=== PATIENT | female | born 2000 | race African-American/Black ===

== ENCOUNTER 2019-05-26 23:51 | Emergency (ER) | payer BC, MEDICAID ==
[2019-05-27 00:45] LABS: #Basophils 0.1 thou/uL (0.0-0.2); #Eosinphils 0.1 thou/uL (0.0-0.7); #Lymphocytes 2.9 thou/uL (1.20-3.40); #Monocytes 0.7 thou/uL (0.11-0.59); #Neutrophils 3.5 thou/uL (1.40-6.50); %Basophils 1.2 % (0.0-1.0); %Lymphocytes 39.8 % (28.0-48.0); Hemoglobin 11.9 g/dL (12.0-16.0); Mean Corpuscular HGB CONC 33.7 g/dL (32.0-36.0); Mean Corpuscular Hemoglobin 31.2 pg (25.0-35.0); Mean Corpuscular Volume 92.6 fL (78.0-98.0); Mean Platelet Volume 6.5 fL (7.4-10.4); Platelet Count 350 thou/uL (130-400); RBC Distribution Width 11.4 % (11.5-14.5); White Blood Cell (WBC) Count 7.2 thou/uL (4.8-10.8)
[2019-05-27 00:56] LABS: Pregnancy Test - Urine (BHCG) POSITIVE (Negative); Pregu Control Background? CLEAR/WHITE (CLR/WHITE); Pregu Control Bar Appear? YES (CONTROL BAR)
[2019-05-27 00:57] LABS: Specific Gravity 1.006 (1.002-1.036)
[2019-05-27 01:01] LABS: Bacteria/HPF 4+ HPF (None Seen); Bilirubin Negative (Negative); Blood, Urine 1+ (Negative); Clarity Turbid (Clear); Glucose, Urine (Dipstick) Normal (Negative); Leukocyte 500 Leu/uL (Negative); Nitrite Negative (Negative); Protein, Urine (Dipstick) Negative (Neg-Trace); Urobilinogen Normal mg/dL (Less than 2)
[2019-05-27 01:19] LABS: ALT (SGPT) 10 U/L (8-55); AST (SGOT) 15 U/L (5-34); Albumin 4.4 g/dL (3.5-5.0); Alkaline Phosphatase 52 U/L (40-100); Anion Gap 9 mmol/L (10-20); BUN (Urea Nitrogen) 6 mg/dL (7.0-18.7); Bilirubin, Total 0.5 mg/dL (0.2-1.2); Calc. Creatinine Clearance 0 mL/min (70-130); Calcium 9.2 mg/dL (7.8-10.44); Carbon Dioxide 28 mmol/L (22-29); Chloride 103 mmol/L (98-107); Estimated GFR-MDRD Greater than 90; Glucose 87 mg/dL (70-105); Potassium 3.9 mmol/L (3.5-5.1); Protein, Total 7.4 g/dL (6.0-8.3); Sodium 136 mmol/L (136-145)
--- NOTE | 2019-05-27 09:11 | ULT ---
PRELIMINARY REPORT/[facility]/EMERGENCY AFTER HOURS PROCEDURE: PROCEDURE INFORMATION: Exam: US First Trimester, Transabdominal and US Duplex Artery or Vein, Ovaries, Limited Exam date and time: 05/27/2019 4:23 AM Age: 18 years old Clinical history: complicated by abdominal or pelvic pain; Lower; First trimester; Gestatio nal age or lmp: Lmp= 04/18/19; ; Additional info: Patient feels pain is caused by her bowels and not the . TECHNIQUE: Imaging protocol: Real-time transabdominal obstetrical ultrasound of the maternal pelvis and a first trimester , less than 14 weeks 0 days, with image documentation. Real-time duplex ultrasound scan of the arterial or venous flow of the ovaries with B-mode, color Doppler flow and spectral waveform analysis, limited Duplex. COMPARISON: No relevant prior studies available. FINDINGS: Transabdominal obstetrical ultrasound was performed. Duplex ultrasound scan with color Doppler flow a nd spectral waveform analysis was also performed for evaluation of pelvic and ovarian blood flow and torsion. Gestation: There is an intrauterine sac (MSD: 1.45cm-6w2d), although no yolk sac or pole visual ized by transabdominal ultrasound. Uterus: See above. Otherwise unremarkable. Cervix: Unremarkable. Right adnexa: Unremarkable. No mass. Normal duplex of the ovary. No evidence of torsion. Left adnexa: Left ovary is not visualized. Intraperitoneal: No intraperitoneal free fluid. IMPRESSION: There is an intrauterine gestational sac, although no yolk sac or pole visualized by transabdom inal ultrasound; recommend further evaluation with transvaginal ultrasound. Thank you for allowing us to participate in the care of your patient. Dictated and Authenticated by: Manny Mcnulty MD 05/27/2019 5:18 AM Central Time ([place] & [place]) FINAL REPORT I agree with the preliminary report provided. Findings are suspicious for a of undetermined location. There is a fluid-filled sac within the uterus which may reflect early ; however, a pseudogestational sac is not excluded. Mis sed is not excluded. Would recommend continued clinical and sonographic followup. The left ovary was not visualized. Visualized right ovary appeared within normal limits. POS:
== END 2019-05-27 04:50 | disposition home or self-care (01) ==
LOC: ERS 23:51
DX: O99.89 Other specified diseases and conditions complicating pregnancy, childbirth and the puerperium (principal); R10.30 Lower abdominal pain, unspecified; F41.9 Anxiety disorder, unspecified; F32.9 Major depressive disorder, single episode, unspecified; Z3A.01 Less than 8 weeks gestation of pregnancy
CPT/HCPCS: 36415; 76856; 80053; 81003; 81015; 81025; 83690; 84702; 85025; 93976

== ENCOUNTER 2019-07-08 22:06 | Emergency (ER) | payer BC, MEDICAID, SELFPAY ==
[2019-07-08 22:43] LABS: #Basophils 0.1 thou/uL (0.0-0.2); #Eosinphils 0.1 thou/uL (0.0-0.7); #Lymphocytes 2.7 thou/uL (1.20-3.40); #Monocytes 0.7 thou/uL (0.11-0.59); #Neutrophils 4.8 thou/uL (1.40-6.50); %Basophils 0.7 % (0.0-1.0); %Eosinophils 1.2 % (0.0-10.0); %Lymphocytes 32.6 % (28.0-48.0); %Monocytes 8.1 % (0.0-4.0); %Neutrophils 57.3 % (31.0-61.0); Hemoglobin 11.4 g/dL (12.0-16.0); Mean Corpuscular HGB CONC 35.3 g/dL (32.0-36.0); Mean Corpuscular Hemoglobin 32.2 pg (25.0-35.0); Mean Corpuscular Volume 91.3 fL (78.0-98.0); Mean Platelet Volume 6.6 fL (7.4-10.4); Platelet Count 324 thou/uL (130-400); RBC Distribution Width 11.5 % (11.5-14.5); Red Blood Cell (RBC) Count 3.54 mill/uL (4.00-5.20); White Blood Cell (WBC) Count 8.3 thou/uL (4.8-10.8)
[2019-07-08 23:05] LABS: ALT (SGPT) 10 U/L (8-55); AST (SGOT) 14 U/L (5-34); Alkaline Phosphatase 43 U/L (40-100); Anion Gap 11 mmol/L (10-20); BUN (Urea Nitrogen) 7 mg/dL (7.0-18.7); Bilirubin, Total 0.4 mg/dL (0.2-1.2); Calc. Creatinine Clearance 0 mL/min (70-130); Calcium 8.9 mg/dL (7.8-10.44); Carbon Dioxide 23 mmol/L (22-29); Chloride 105 mmol/L (98-107); Estimated GFR-MDRD Greater than 90; Glucose 85 mg/dL (70-105); Potassium 3.6 mmol/L (3.5-5.1); Sodium 135 mmol/L (136-145)
--- NOTE | 2019-07-08 23:52 | ULT ---
Limited Obstetrical Ultrasound INDICATION: Evaluate placentation TECHNIQUE: Grayscale, M-mode Doppler, color Doppler and spectral Doppler images were obtained. Darius dominguez is focused on the clinical indication. COMPARISON: May 27, 2019 FINDINGS: GESTATION: Number of gestations: Single. Presentation: Cephalic. heart rate: 171 bpm. Placental location: Fundal. There is a small suspected perigestational hemorrhage seen in the uterine fundus measuring 3.5 x 0.5 cm. Previa: No evidence for previa. Cervical length: Not measured SURI: Not measured cm. LIMITED SURVEY: Visualized spine and stomach appeared within normal limits. BIOMETRY: [place]-rump length was 6.51 cm giving estimated gestational age of 12 weeks and 6 days. The estimated due date by ultrasound is January 15, 2020. IMPRESSION: 1. Single live intrauterine gestation with size and dates as above. 2. The placenta is fundal in location. There is a small perigestational hemorrhage suspected in the u terine fundus measuring 3.5 x 0.5 cm. Continued sonographic follow-up is recommended.
[2019-07-08 23:58] LABS: Bacteria/HPF None Seen HPF (None Seen); Bilirubin Negative (Negative); Blood, Urine 3+ (Negative); Clarity Extra Turbid (Clear); Glucose, Urine (Dipstick) Normal (Negative); Leukocyte 250 Leu/uL (Negative); Nitrite Negative (Negative); Protein, Urine (Dipstick) 30 mg/dL (Neg-Trace); RBC/HPF Greater than 50 HPF (0-3); Squamous Epithelial 0-3 HPF (0-3); Urobilinogen Normal mg/dL (Less than 2); WBC/HPF Greater than 50 HPF (0-3)
[2019-07-10 14:09] LABS: Chlamydia by PCR Not Detected (NotDetected); GC by PCR Not Detected (NotDetected)
== END 2019-07-09 00:40 | disposition home or self-care (01) ==
LOC: ERS 22:06
DX: O20.0 Threatened abortion (principal); O99.341 Other mental disorders complicating pregnancy, first trimester; F41.9 Anxiety disorder, unspecified; F32.9 Major depressive disorder, single episode, unspecified; Z3A.12 12 weeks gestation of pregnancy
CPT/HCPCS: 36415; 76856; 80053; 81003; 81015; 84702; 85025; 86900; 86901; 87480; 87491; 87510; 87591; 87660